=== PATIENT | female | born 1930 | race Hispanic/Latino ===

== ENCOUNTER 2021-09-15 21:25 | Emergency (ER) | payer MEDICARE ==
[2021-09-15] MEDS ORDERED: FAMOTIDINE 20 MG/2 ML INJ IV ONE (22:18)
[2021-09-15] MEDS ORDERED: DICYCLOMINE 20 MG/2 ML INJ IM ONE (22:18)
[2021-09-15] MEDS ORDERED: ALUM-MAG HYDROXIDE-SIMETHICONE 200-200-20MG/5ML ORAL LIQD 30 ML PO ONE (22:18)
[2021-09-15 23:09] LABS: Basophils # (Auto) 0.1 K/mm3 (0.0-0.1); Basophils % (Auto) 0.7 % (0.0-1.8); Eosinophils # (Auto) 0.1 K/mm3 (0.0-0.4); Eosinophils % (Auto) 1.1 % (0.0-4.3); Hematocrit 38.7 % (30.3-42.9); Hemoglobin 12.3 gm/dl (10.1-14.3); Lymphocytes # (Auto) 1.8 K/mm3 (1.2-5.4); Lymphocytes % (Auto) 19.4 % (13.4-35.0); Mean Corpuscular HGB Conc 32 % (30-34); Mean Corpuscular Volume 90 fl (79-97); Monocytes # (Auto) 0.8 K/mm3 (0.0-0.8); Monocytes % (Auto) 8.6 % (0.0-7.3); Platelet Count 208 K/mm3 (140-440); Red Blood Count 4.31 M/mm3 (3.65-5.03)
--- NOTE | 2021-09-15 23:29 | XRay Report ---
ABDOMEN 2 VIEW WITH PA CHEST INDICATION / CLINICAL INFORMATION: Epigastric pain. COMPARISON: Prior chest radiograph, 09/26/2010 FINDINGS: Supine and erect views of the abdomen demonstrate mild to moderate amount retained stool within the c olon. No visible fecal impaction. The remainder of the bowel gas pattern is unremarkable. No free air . There is severe degenerative change within the right hip. Left hip arthroplasty is present. PA view of the chest demonstrates mild stable cardiomegaly. There is mild chronic interstitial lung d isease. The lungs are otherwise grossly clear. IMPRESSION: 1. Mild to moderate amount retained stool throughout the colon without visible fecal impaction. 2. No other significant finding within the abdomen. 3. Mild cardiomegaly with mild chronic interstitial lung disease. The appearance of the chest radiogr aph is unchanged from 2011 exam. Signer Name: Mignon Goyal MD Signed: 09/15/2021 11:25 PM Workstation Name: [id number]
[2021-09-15 23:30] LABS: Alanine Aminotransferase 23 units/L (7-56); Albumin 3.8 g/dL (3.9-5); BUN/Creatinine Ratio 22; Blood Urea Nitrogen 22 mg/dL (7-17); Calcium 9.6 mg/dL (8.4-10.2); Hemolysis Index 7
--- NOTE | 2021-09-15 23:57 | Emergency Department Report ---
ED Abdominal Pain HPI - General Chief Complaint: Chest Pain Stated Complaint: CHEST PAIN Time Seen by Provider: 09/15/21 22:17 Source: EMS Mode of arrival: Stretcher Limitations: No Limitations - History of Present Illness Initial Comments: Patient is a 89-year-old female with a past medical history of atrial fibrillation and cholecystectomy 50 years ago who is presenting with some epigastric discomfort. Patient states at approximately 4 PM patient ate some meat loaf and mashed potatoes with a salad. Several hours later she started feeling some epigastric discomfort and fullness. Occasionally with radiating to the chest. States she felt like this was worsening indigestion so she came to the hospital. Patient states she belched several times and now feels complete relief. Currently she is not endorsing any complaints of pain. Associated Symptoms: other (Cough cold or congestion). denies: nausea, vomit ing, chills, constipation, dysuria, hematemesis, melena, hematuria, anorexia, syncope - Related Data Previous Rx's Medication Instructions Recorded Last Taken Type Docusate Sodium [Colace] 100 mg PO BID #30 capsule 09/15/21 Unknown Rx Allergies Allergy/AdvReac Type Severity Reaction Status Date / Time No Known Allergies Allergy Unverified 09/15/21 23:16 ED Review of Systems ROS: Stated complaint: CHEST PAIN Other details as noted in HPI Comment: All other systems reviewed and negative ED Past Medical Hx - Medications Home Medications: Home Medications Medication Instructions Recorded Confirmed Last Taken Type Docusate Sodium [Colace] 100 mg PO BID #30 capsule 09/15/21 Unknown Rx ED Physical Exam - General Limitations: No Limitations General appearance: alert, in no apparent distress - Head Head exam: Present: atraumatic, normocephalic - Eye Eye exam: Present: normal appearance, PERRL, EOMI - ENT ENT exam: Present: mucous membranes moist - Neck Neck exam: Present: normal inspection - Respiratory Respiratory exam: Present: normal lung sounds bilaterally. Absent: respiratory distress, wheezes, rales, rhonchi - Cardiovascular Cardiovascular Exam: Present: regular rate, normal rhythm. Absent: systolic murmur, diastolic murmur, rubs, gallop - GI/Abdominal GI/Abdominal exam: Present: soft, normal bowel sounds. Absent: distended, tenderness, guarding, rebound - Extremities Exam Extremities exam: Present: normal inspection - Back Exam Back exam: Present: normal inspection - Neurological Exam Neurological exam: Present: alert, oriented X3 - Psychiatric Psychiatric exam: Present: normal affect, normal mood - Skin Skin exam: Present: warm, dry, intact, normal color. Absent: rash ED Course Vital Signs 09/15/21 09/15/21 09/15/21 21:56 22:00 22:16 Pulse Rate 89 Respiratory 14 Rate Blood Pressure 134/64 130/59 107/45 O2 Sat by Pulse 97 97 Oximetry 09/15/21 09/15/21 09/15/21 22:30 22:46 23:00 Pulse Rate 80 85 91 H Respiratory 16 16 18 Rate Blood Pressure 92/50 92/50 126/48 O2 Sat by Pulse 94 96 95 Oximetry ED Medical Decision Making - Lab Data Result diagrams: 09/15/21 22:53 09/15/21 22:53 Lab Results 09/15/21 09/15/21 Range/Units 22:53 22:53 WBC 9.4 (4.5-11.0) K/mm3 RBC 4.31 (3.65-5.03) M/mm3 Hgb 12.3 (10.1-14.3) gm/dl Hct 38.7 (30.3-42.9) % MCV 90 (79-97) fl MCH 29 (28-32) pg MCHC 32 (30-34) % RDW 15.0 (13.2-15.2) % Plt Count 208 (140-440) K/mm3 Lymph % (Auto) 19.4 (13.4-35.0) % [place] % (Auto) 8.6 H (0.0-7.3) % Eos % (Auto) 1.1 (0.0-4.3) % Baso % (Auto) 0.7 (0.0-1.8) % Lymph # (Auto) 1.8 (1.2-5.4) K/mm3 [place] # (Auto) 0.8 (0.0-0.8) K/mm3 Eos # (Auto) 0.1 (0.0-0.4) K/mm3 Baso # (Auto) 0.1 (0.0-0.1) K/mm3 Seg Neutrophils % 70.2 H (40.0-70.0) % Seg Neutrophils # 6.6 (1.8-7.7) K/mm3 Sodium 141 (137-145) mmol/L Potassium 4.0 (3.6-5.0) mmol/L Chloride 106.7 (98-107) mmol/L Carbon Dioxide 23 (22-30) mmol/L Anion Gap 15 mmol/L BUN 22 H (7-17) mg/dL Creatinine 1.0 (0.6-1.2) mg/dL Estimated GFR 52 ml/min BUN/Creatinine Ratio 22 % Glucose 129 H (65-100) mg/dL Calcium 9.6 (8.4-10.2) mg/dL Total Bilirubin 0.30 (0.1-1.2) mg/dL AST 43 H (5-40) units/L ALT 23 (7-56) units/L Alkaline Phosphatase 117 (35-129) units/L Troponin T < 0.010 (0.00-0.029) ng/mL Total Protein 6.0 L (6.3-8.2) g/dL Albumin 3.8 L (3.9-5) g/dL Albumin/Globulin Ratio 1.7 % - EKG Data -: EKG Interpreted by Ri - EKG Data 09/15/21 23:54 EKG shows irregular regular rhythm with a rate 86. [place] is normal intervals otherwise normal. No ST segment elevations or depressions. Time interpretation 2204 - Radiology Data ABDOMEN 2 VIEW WITH PA CHEST INDICATION / CLINICAL INFORMATION: Epigastric pain. COMPARISON: Prior chest radiograph, 09/26/2010 FINDINGS: Supine and erect views of the abdomen demonstrate mild to moderate amount retained stool within the colon. No visible fecal impaction. The remainder of the bowel gas pattern is unremarkable. No free air. There is severe degenerative change within the right hip. Left hip arthroplasty is present. PA view of the chest demonstrates mild stable cardiomegaly. There is mild chronic interstitial lung disease. The lungs are otherwise grossly clear. IMPRESSION: 1. Mild to moderate amount retained stool throughout the colon without visible fecal impaction. 2. No other significant finding within the abdomen. 3. Mild cardiomegaly with mild chronic interstitial lung disease. The appearance of the chest radiograph is unchanged from 2011 exam. Signer Name: Mignon Goyal MD Signed: 09/15/2021 11:25 PM Workstation Name: [id number] - Medical Decision Making Patient likely with some GERD gas pain. After belching several times the patient states the pain is relieved. Troponin and EKG are within normal limits. No evidence of bowel obstruction. Patient stable for discharge Critical care attestation.: If time is entered above; I have spent that time in minutes in the direct care of this critically ill patient, excluding procedure time. ED Disposition Clinical Impression: Gas pain, GERD (gastroesophageal reflux disease), Constipation Disposition: 01 HOME / SELF CARE / HOMELESS Is pt being admited?: No Does the pt Need Aspirin: No Condition: Stable Instructions: Chronic Constipation, Gastroesophageal Reflux Disease, Adult, [id number] Prescriptions: Docusate Sodium [Colace] 100 mg PO BID #30 capsule Referrals: PRIMARY CARE, [Primary Care Provider] - 3-5 Days Time of Disposition: 23:57
[2021-09-16 04:31] VITALS: BP 129/80
--- NOTE | 2021-09-16 14:42 | Electrocardiograph Report ---
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
== END 2021-09-16 03:50 | disposition home or self-care (01) ==
LOC: ED 21:25
DX: R14.1 Gas pain (principal); K21.9 Gastro-esophageal reflux disease without esophagitis; K59.00 Constipation, unspecified
CPT/HCPCS: 36415; 74022; 80053; 84484; 85025; 93005; 93010; 99284

== ENCOUNTER 2022-01-20 11:21 | Inpatient (IN) | payer MEDICARE ==
--- NOTE | 2022-01-20 14:51 | Emergency Department Report ---
ED General Adult HPI - General Chief complaint: Chest Pain Stated complaint: CHEST PRESSURE Time Seen by Provider: 01/20/22 14:32 Source: EMS Mode of arrival: Stretcher Limitations: No Limitations - History of Present Illness Initial comments: The patient presents to the emergency department the chief complaint of chest pain. Patient states this morning she woke up with chest tightness throughout her entire chest. The patient states she took 3 nitroglycerin tablets with significant improvement in her pain. Patient states that she still having a t ightness in her chest and rates the tightness as a 4 out of 10. Patient denies any shortness of breath, headache, abdominal pain. Patient does have a remote history of a myocardial infarction and stent placement. Patient cannot remember what year that was done. 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 -: Sudden Location: chest Radiation: non-radiation Severity scale (0 -10): 4 Quality: other (Tightness) Consistency: constant Improves with: none Worsens with: none Associated Symptoms: denies other symptoms Treatments Prior to Arrival: none - Related Data Previous Rx's Medication Instructions Recorded Last Taken Type Docusate Sodium [Colace] 100 mg PO BID #30 capsule 09/15/21 Unknown Rx Allergies Allergy/AdvReac Type Severity Reaction Status Date / Time No Known Allergies Allergy Unverified 01/20/22 11:55 ED Review of Systems ROS: Stated complaint: CHEST PRESSURE Other details as noted in HPI Comment: All other systems reviewed and negative Constitutional: denies: chills, fever Eyes: denies: eye pain, eye discharge, vision change ENT: denies: ear pain, throat pain Respiratory: denies: cough, shortness of breath, wheezing Cardiovascular: chest pain. denies: palpitations Endocrine: no symptoms reported Gastrointestinal: denies: abdominal pain, nausea, diarrhea Genitourinary: denies: urgency, dysuria, discharge Musculoskeletal: denies: back pain, joint swelling, arthralgia Skin: denies: rash, lesions Neurological: denies: headache, weakness, paresthesias Psychiatric: denies: anxiety, depression Hematological/Lymphatic: denies: easy bleeding, easy bruising ED Past Medical Hx - Medications Home Medications: Home Medications Medication Instructions Recorded Confirmed Last Taken Type Docusate Sodium [Colace] 100 mg PO BID #30 capsule 09/15/21 Unknown Rx ED Physical Exam - General Limitations: No Limitations General appearance: alert, in no apparent distress - Head Head exam: Present: atraumatic, normocephalic - Eye Eye exam: Present: normal appearance, PERRL, EOMI - ENT ENT exam: Present: mucous membranes moist - Neck Neck exam: Present: normal inspection - Respiratory Respiratory exam: Present: normal lung sounds bilaterally. Absent: respiratory distress - Cardiovascular Cardiovascular Exam: Present: regular rate, normal rhythm. Absent: systolic murmur, diastolic murmur, rubs, gallop - GI/Abdominal GI/Abdominal exam: Present: soft, normal bowel sounds. Absent: distended, tend erness - Extremities Exam Extremities exam: Present: normal inspection - Back Exam Back exam: Present: normal inspection - Neurological Exam Neurological exam: Present: alert, oriented X3, CN II-XII intact. Absent: motor sensory deficit - Psychiatric Psychiatric exam: Present: normal affect, normal mood - Skin Skin exam: Present: warm, dry, intact, normal color. Absent: rash ED Course Vital Signs 01/20/22 11:39 Temperature 98.3 F Pulse Rate 73 Respiratory 16 Rate Blood Pressure 155/80 [Left] O2 Sat by Pulse 97 Oximetry ED Medical Decision Making - Lab Data Result diagrams: 01/20/22 Unknown 01/20/22 Unknown Lab Results 01/20/22 01/20/22 01/20/22 Range/Units Unknown Unknown Unknown WBC 7.1 (4.5-11.0) K/mm3 RBC 4.68 (3.65-5.03) M/mm3 Hgb 13.8 (10.1-14.3) gm/dl Hct 41.8 (30.3-42.9) % MCV 89 (79-97) fl MCH 30 (28-32) pg MCHC 33 (30-34) % RDW 14.6 (13.2-15.2) % Plt Count 196 (140-440) K/mm3 Lymph % (Auto) 29.6 (13.4-35.0) % [place] % (Auto) 6.8 (0.0-7.3) % Eos % (Auto) 1.6 (0.0-4.3) % Baso % (Auto) 0.9 (0.0-1.8) % Lymph # (Auto) 2.1 (1.2-5.4) K/mm3 [place] # (Auto) 0.5 (0.0-0.8) K/mm3 Eos # (Auto) 0.1 (0.0-0.4) K/mm3 Baso # (Auto) 0.1 (0.0-0.1) K/mm3 Seg Neutrophils % 61.1 (40.0-70.0) % Seg Neutrophils # 4.4 (1.8-7.7) K/mm3 PT 33.8 H (12.2-14.9) Sec. INR 2.86 H (0.87-1.13) APTT 46.6 H (24.2-36.6) Sec. Sodium 141 (137-145) mmol/L Potassium 4.0 (3.6-5.0) mmol/L Chloride 107.2 H (98-107) mmol/L Carbon Dioxide 23 (22-30) mmol/L Anion Gap 15 mmol/L BUN 13 (7-17) mg/dL Creatinine 0.8 (0.6-1.2) mg/dL Estimated GFR > 60 ml/min BUN/Creatinine Ratio 16 % Glucose 94 (65-100) mg/dL Calcium 10.2 (8.4-10.2) mg/dL Total Bilirubin 0.60 (0.1-1.2) mg/dL AST 16 (5-40) units/L ALT 10 (7-56) units/L Alkaline Phosphatase 98 (35-129) units/L Troponin T < 0.010 (0.00-0.029) ng/mL Total Protein 7.3 (6.3-8.2) g/dL Albumin 4.1 (3.9-5) g/dL Albumin/Globulin Ratio 1.3 % Lipase 16 (13-60) units/L - EKG Data -: EKG Interpreted by Me - EKG Data 01/20/22 18:06 A. fib, no STEMI - Radiology Data Radiology results: report reviewed - Medical Decision Making Lab Results 01/20/22 01/20/22 01/20/22 Range/Units Unknown Unknown Unknown WBC 7.1 (4.5-11.0) K/mm3 RBC 4.68 (3.65-5.03) M/mm3 Hgb 13.8 (10.1-14.3) gm/dl Hct 41.8 (30.3-42.9) % MCV 89 (79-97) fl MCH 30 (28-32) pg MCHC 33 (30-34) % RDW 14.6 (13.2-15.2) % Plt Count 196 (140-440) K/mm3 Lymph % (Auto) 29.6 (13.4-35.0) % [place] % (Auto) 6.8 (0.0-7.3) % Eos % (Auto) 1.6 (0.0-4.3) % Baso % (Auto) 0.9 (0.0-1.8) % Lymph # (Auto) 2.1 (1.2-5.4) K/mm3 [place] # (Auto) 0.5 (0.0-0.8) K/mm3 Eos # (Auto) 0.1 (0.0-0.4) K/mm3 Baso # (Auto) 0.1 (0.0-0.1) K/mm3 Seg Neutrophils % 61.1 (40.0-70.0) % Seg Neutrophils # 4.4 (1.8-7.7) K/mm3 PT 33.8 H (12.2-14.9) Sec. INR 2.86 H (0.87-1.13) APTT 46.6 H (24.2-36.6) Sec. Sodium 141 (137-145) mmol/L Potassium 4.0 (3.6-5.0) mmol/L Chloride 107.2 H (98-107) mmol/L Carbon Dioxide 23 (22-30) mmol/L Anion Gap 15 mmol/L BUN 13 (7-17) mg/dL Creatinine 0.8 (0.6-1.2) mg/dL Estimated GFR > 60 ml/min BUN/Creatinine Ratio 16 % Glucose 94 (65-100) mg/dL Calcium 10.2 (8.4-10.2) mg/dL Total Bilirubin 0.60 (0.1-1.2) mg/dL AST 16 (5-40) units/L ALT 10 (7-56) units/L Alkaline Phosphatase 98 (35-129) units/L Troponin T < 0.010 (0.00-0.029) ng/mL Total Protein 7.3 (6.3-8.2) g/dL Albumin 4.1 (3.9-5) g/dL Albumin/Globulin Ratio 1.3 % Lipase 16 (13-60) units/L Results discussed with patient Critical care attestation.: If time is entered above; I have spent that time in minutes in the direct care of this critically ill patient, excluding procedure time. ED Disposition Clinical Impression: Chest pain Disposition: ADMITTED INPATIENT Is pt being admited?: Yes Does the pt Need Aspirin: No Condition: Fair Heart Score - HEART Score History: Moderately suspicious EKG: Non-specific Age: > 65 Risk factors: 1-2 risk factors Troponin: 1-3x normal limit HEART Score: 6 - EKG Read Time Time EKG Completed: 00:00 EKG Read Time: 00:00
--- NOTE | 2022-01-20 15:21 | XRay Report ---
CHEST 1 VIEW 01/20/2022 2:06 PM INDICATION / CLINICAL INFORMATION: Chest Pain. COMPARISON: 09/26/2010 FINDINGS: SUPPORT DEVICES: None. HEART / MEDIASTINUM: Heart size appears borderline LUNGS / PLEURA: No significant pulmonary or pleural abnormality. No pneumothorax. ADDITIONAL FINDINGS: No significant additional findings. IMPRESSION: 1. Borderline heart size. Lungs clear. No significant change since 2010. Signer Name: Rohit Delatorre Jr, MD Signed: 01/20/2022 3:17 PM Workstation Name: [id number]
[2022-01-20 15:46] LABS: Basophils # (Auto) 0.1 K/mm3 (0.0-0.1); Basophils % (Auto) 0.9 % (0.0-1.8); Eosinophils # (Auto) 0.1 K/mm3 (0.0-0.4); Eosinophils % (Auto) 1.6 % (0.0-4.3); Hematocrit 41.8 % (30.3-42.9); Hemoglobin 13.8 gm/dl (10.1-14.3); Lymphocytes # (Auto) 2.1 K/mm3 (1.2-5.4); Lymphocytes % (Auto) 29.6 % (13.4-35.0); Mean Corpuscular HGB Conc 33 % (30-34); Mean Corpuscular Volume 89 fl (79-97); Monocytes # (Auto) 0.5 K/mm3 (0.0-0.8); Monocytes % (Auto) 6.8 % (0.0-7.3); Platelet Count 196 K/mm3 (140-440); Red Blood Count 4.68 M/mm3 (3.65-5.03); Red Cell Distribution Width 14.6 % (13.2-15.2)
[2022-01-20 15:56] LABS: INR 2.86 (0.87-1.13)
[2022-01-20 15:57] LABS: Partial Thromboplastin Time 46.6 Sec. (24.2-36.6)
[2022-01-20 16:07] LABS: Alanine Aminotransferase 10 units/L (7-56); Albumin 4.1 g/dL (3.9-5); BUN/Creatinine Ratio 16; Blood Urea Nitrogen 13 mg/dL (7-17); Calcium 10.2 mg/dL (8.4-10.2); Hemolysis Index 5
--- NOTE | 2022-01-20 18:07 | History and Physical Report ---
History of Present Illness Chief complaint: My chest hurts History of present illness: 89 YO Female with Vascular Dementia, Cerebral Atherosclerosis, [place], CAD S/P Stent Placement presents ED for evaluation. Patient reports my chest hurts. Patient states that she awakened from sleep this morning and was found to have pain in her chest. Patient states the pain is 4 out of 10, constant, worsened with exertion, relieved with rest, relieved with nitro, nonradiating. Patient knowledges decreased exercise tolerance, dyspnea on exertion as well as dyspnea at rest. EMS was notified and upon arrival the patient was found to be in distress and subsequent transported to [facility] for further care and evaluation of the aforementioned symptoms. The patient was seen and evaluated in the emergency department. All lab and imaging studies reviewed. Patient found to have angina at rest as well as clinical symptoms consistent with diastolic congestive heart failure. Patient admitted to telemetry and initiated on ACS protocol as well as CHF protocol. Cardiology team consulted in ED. Patient denies fever, chills, productive cough, skin rash, recent contact, known exposure to COVID-19. No prior admission for review. No medication listed at time of admission for reconciliation. Advanced care planning conducted in ED. Past History Past Medical History: acute [place], CAD Past Surgical History: Other (Cardiac stent placement) Social history: . denies: smoking, alcohol abuse, prescription drug abuse Family history: CAD, hypertension Medications and Allergies Allergies Allergy/AdvReac Type Severity Reaction Status Date / Time No Known Allergies Allergy Unverified 01/20/22 11:55 Home Medications Medication Instructions Recorded Confirmed Last Taken Type Docusate Sodium [Colace] 100 mg PO BID #30 capsule 09/15/21 Unknown Rx Review of Systems Constitutional: no weight loss, no fever Ears, nose, mouth and throat: no ear pain, no tinnitis, no nose pain, no nasal congestion Breasts: no change in shape, no swelling Cardiovascular: chest pain, decreased exercise tolerance Respiratory: no cough, no cough with sputum, no hemoptysis, no shortness of breath Gastrointestinal: no abdominal pain, no nausea, no diarrhea, no constipation Genitourinary Female: no pelvic pain, no flank pain, no dysuria, no urinary fr equency Rectal: no pain, no incontinence, no bleeding Musculoskeletal: no neck pain, no arm numbness/tingling, no low back pain, no shooting leg pain Integumentary: no rash, no pruritis, no wounds Neurological: no head injury, no paralysis, no parathesias, no tingling, no tremors Psychiatric: no anxiety, no change in sleep habits, no insomnia, no change in appetite, no suicidal ideation Endocrine: no cold intolerance, no polyphagia, no polydipsia, no nocturia, no excessive sweating Hematologic/Lymphatic: no easy bruising Allergic/Immunologic: no urticaria Exam - Constitutional Vitals: Temp Pulse Resp BP Pulse Ox 98.3 F 73 16 155/80 97 01/20/22 11:39 01/20/22 11:39 01/20/22 11:39 01/20/22 11:39 01/20/22 11:39 General appearance: Present: mild distress - EENT Eyes: Present: PERRL ENT: hearing intact, clear oral mucosa - Neck Neck: Present: supple, normal ROM - Respiratory Respiratory effort: normal Respiratory: bilateral: CTA - Cardiovascular Heart Sounds: Present: S1 & S2. Absent: rub, click - Extremities Extremities: pulses symmetrical, No edema Peripheral Pulses: within normal limits - Abdominal General gastrointestinal: Present: soft, non-tender, non-distended, normal bowel sounds Female genitourinary: Present: normal - Integumentary Integumentary: Present: clear, warm, dry - Musculoskeletal Musculoskeletal: gait normal, strength equal bilaterally - Psychiatric Psychiatric: appropriate mood/affect, intact judgment & insight - Neurologic Neurologic: CNII-XII intact, moves all extremities HEART Score - HEART Score EKG: Non-specific Age: > 65 Risk factors: 1-2 risk factors Troponin: Troponin T < 0.010 ng/mL (0.00-0.029) 01/20/22 Unknown Results - Labs CBC & Chem 7: 01/20/22 Unknown 01/20/22 Unknown Labs: Abnormal lab results 01/20/22 01/20/22 Range/Units Unknown Unknown PT 33.8 H (12.2-14.9) Sec. INR 2.86 H (0.87-1.13) APTT 46.6 H (24.2-36.6) Sec. Chloride 107.2 H (98-107) mmol/L Assessment and Plan - Patient Problems (1) Angina at rest Current Visit: Yes Status: Acute Plan to address problem: ACS protocol: Serial cardiac enzymes, EKG, telemetry monitoring, cardiology team consulted in ED, further care and evaluation as per cardiology team. (2) Diastolic CHF Current Visit: Yes Status: Acute Qualifiers: Heart failure chronicity: acute Qualified Code(s): I50.31 - Acute diastolic (congestive) heart failure Plan to address problem: Strict I's/O, monitor urine output every shift, daily weight, afterload reduction, blood pressure control, cardiology team consulted, echocardiogram ordered and pending at time of admission. (3) Vascular dementia Current Visit: Yes Status: Acute Qualifiers: Dementia behavioral disturbance: without behavioral disturbance Qualified Code(s): F01.50 - Vascular dementia without behavioral disturbance Plan to address problem: Verbal prompting, verbal redirection, benzodiazepine therapy as clinically indicated. (4) Cerebral atherosclerosis Current Visit: Yes Status: Acute Plan to address problem: Risk factor reduction, antiplatelet therapy as clinically indicated, supportive care. (5) DVT prophylaxis Current Visit: Yes Status: Acute Plan to address problem: SCD to bilateral lower extremities while in bed (6) Advance care planning Current Visit: Yes Status: Acute Plan to address problem: Disease education done, care plan discussed, diagnoses discussed, prognosis discussed, patient is full code. Patient acknowledges understanding agreement with care plan, +30 minutes. (7) Preventative health care Current Visit: Yes Status: Acute Plan to address problem: Patient counseled with regarding risk factor reduction, low-cholesterol diet, outpatient follow-up with primary care physician for all age and risk factor appropriate screening test.
[2022-01-20 18:09] LABS: Bilirubin,Urine NEG (Negative); Blood,Urine MOD (Negative); Color,Urine Straw (Yellow); Protein,Urine <15 mg/dL mg/dL (Negative); Urobilinogen,Urine < 2.0 mg/dL (<2.0)
[2022-01-20] MEDS ORDERED: NITROGLYCERIN 0.4 MG TAB SUBL SL PRN (18:09)
[2022-01-20] MEDS ORDERED: traMADol 50 MG TAB PO PRN (18:09)
[2022-01-20] MEDS ORDERED: ASPIRIN 81 MG TAB CHEW PO STA (18:09)
[2022-01-20] MEDS ORDERED: ALBUTEROL 2.5 MG/3 ML NEBU IH PRN (18:09)
[2022-01-20] MEDS ORDERED: ACETAMINOPHEN 325 MG TAB PO PRN ×2 (18:09)
[2022-01-20] MEDS ORDERED: oxyCODONE /ACETAMINOPHEN 5-325MG TAB PO PRN (18:09)
[2022-01-20] MEDS ORDERED: MORPHINE 4 MG/1 ML INJ IV PRN (18:09)
[2022-01-20] MEDS ORDERED: ONDANSETRON 4 MG/2 ML INJ IV PRN (18:09)
[2022-01-20] MEDS: FAMOTIDINE 10 MG TAB PO SCH (22:00)
[2022-01-20] MEDS: DOCUSATE SODIUM 100 MG CAP PO SCH (22:00)
[2022-01-21 03:35] LABS: Blood Urea Nitrogen 12 mg/dL (7-17); Calcium 10.5 mg/dL (8.4-10.2); Hemolysis Index 5
[2022-01-21 03:40] LABS: BUN/Creatinine Ratio 17
[2022-01-21] MEDS ORDERED: ASPIRIN 81 MG TAB CHEW ONE (06:48)
[2022-01-21] MEDS ORDERED: FAMOTIDINE 20 MG/2 ML INJ IV ONE (06:49)
--- NOTE | 2022-01-21 10:36 | Consultation ---
History of Present Illness Consult date: 01/21/22 Consult reason: chest pain History of present illness: 89-year-old female with past medical history of CAD status post prior stents, persistent atrial fibrillation on warfarin, and hypertension is admitted with chest discomfort. Patient reports recent onset of chest tightness located in the right chest. Symptoms are notable upon waking up but no recurrence during the day or with activity. No relationship with food. She denies any shortness of breath, leg swelling, or activity intolerance. She is followed by Dr. Kwame Washington at [facility]. Work-up notable for EKG w/o ischemic changes and troponin x3 negative. Past History Past Medical History: acute ME, CAD Past Surgical History: Other (Cardiac stent placement) Social history: . denies: smoking, alcohol abuse, prescription drug abuse Family history: CAD, hypertension Medications and Allergies Allergies Allergy/AdvReac Type Severity Reaction Status Date / Time No Known Allergies Allergy Unverified 01/20/22 11:55 Home Medications Medication Instructions Recorded Confirmed Last Taken Type Docusate Sodium [Colace CAP] 100 mg PO BID #30 capsule 09/15/21 01/20/22 Unknown Rx Losartan 50 mg PO HS 01/20/22 01/20/22 Unknown History Warfarin 4 mg PO HS 01/20/22 01/20/22 Unknown History Amlodipine Besylate [Norvasc] 5 mg PO DAILY 01/21/22 01/21/22 Unknown History Aspirin [Aspirin BABY CHEW TAB] 81 mg PO DAILY 01/21/22 01/21/22 Unknown History Levothyroxine Sodium 88 mcg PO DAILY 01/21/22 01/21/22 Unknown History [Levothyroxine] Metoprolol [Lopressor TAB] 25 mg PO BID #60 tablet 01/21/22 Unknown Rx Oxybutynin Chloride [Ditropan Xl] 10 mg PO QDAY 01/21/22 01/21/22 Unknown History Active Meds: Active Medications Acetaminophen (Acetaminophen 325 Mg Tab) 650 mg PO Q4H PRN PRN Reason: Pain MILD(1-3)/Fever >100.5/MADRID Acetaminophen (Acetaminophen 325 Mg Tab) 650 mg PO Q6H PRN PRN Reason: Pain, Mild (1-3) Albuterol (Albuterol 2.5 Mg/3 Ml Nebu) 2.5 mg IH Q4HRT PRN PRN Reason: Shortness Of Breath Amlodipine Besylate (Amlodipine 5 Mg Tab) 5 mg PO QDAY [facility] Aspirin (Aspirin 81 Mg Tab Chew) 81 mg PO QDAY [facility] Docusate Sodium (Docusate Sodium 100 Mg Cap) 100 mg PO BID [facility] Last Admin: 01/20/22 22:00 Dose: 100 mg Famotidine (Famotidine 10 Mg Tab) 10 mg PO BID [facility] Last Admin: 01/20/22 22:00 Dose: 10 mg Losartan Potassium (Losartan 50 Mg Tab) 50 mg PO QDAY [facility] Morphine Sulfate (Morphine 4 Mg/1 Ml Inj) 2 mg IV Q8H PRN PRN Reason: Pain , Severe (7-10) Nitroglycerin (Nitroglycerin 0.4 Mg Tab Subl) 0.4 mg SL Q5M PRN PRN Reason: Chest Pain Ondansetron HCl (Ondansetron 4 Mg/2 Ml Inj) 4 mg IV Q8H PRN PRN Reason: Nausea And Vomiting Oxycodone/Acetaminophen (Oxycodone /Acetaminophen 5-325mg Tab) 1 tab PO Q6H PRN PRN Reason: Pain, Moderate (4-6) Sodium Chloride (Sodium Chloride 0.9% 10 Ml Flush Syringe) 10 ml IV BID [facility] Last Admin: 01/20/22 22:00 Dose: 10 ml Sodium Chloride (Sodium Chloride 0.9% 10 Ml Flush Syringe) 10 ml IV PRN PRN PRN Reason: LINE FLUSH Sodium Chloride (Sodium Chloride 0.9% 10 Ml Flush Syringe) 10 ml IV PRN PRN PRN Reason: LINE FLUSH Tramadol HCl (Tramadol 50 Mg Tab) 50 mg PO Q6H PRN PRN Reason: Pain, Moderate (4-6) Physical Examination Vital Signs Temp Pulse Resp BP Pulse Ox 98.3 F 73 16 155/80 97 01/20/22 11:39 01/20/22 11:39 01/20/22 11:39 01/20/22 11:39 01/20/22 11:39 Narrative exam: Gen-NAD, comfortable HEENT-normocephalic, atraumatic CV-irregularly irregular rhythm, controlled rate, no murmurs Lungs-CTAB, no increased WOB Abd-soft, nt,nd Ext-no edema, warm to touch Neuro-no focal deficits, alert and oriented Psych-normal affect, no agitation Results 01/20/22 Unknown 01/21/22 02:52 Cardiac Enzymes 01/20/22 Range/Units Unknown AST 16 (5-40) units/L Coagulation 01/20/22 Range/Units Unknown PT 33.8 H (12.2-14.9) Sec. INR 2.86 H (0.87-1.13) APTT 46.6 H (24.2-36.6) Sec. CBC 01/20/22 Range/Units Unknown WBC 7.1 (4.5-11.0) K/mm3 RBC 4.68 (3.65-5.03) M/mm3 Hgb 13.8 (10.1-14.3) gm/dl Hct 41.8 (30.3-42.9) % Plt Count 196 (140-440) K/mm3 Lymph # (Auto) 2.1 (1.2-5.4) K/mm3 Avery # (Auto) 0.5 (0.0-0.8) K/mm3 Eos # (Auto) 0.1 (0.0-0.4) K/mm3 Baso # (Auto) 0.1 (0.0-0.1) K/mm3 Comprehensive Metabolic Panel 01/20/22 01/21/22 Range/Units Unknown 02:52 Sodium 141 143 (137-145) mmol/L Potassium 4.0 4.0 (3.6-5.0) mmol/L Chloride 107.2 H 105.7 (98-107) mmol/L Carbon Dioxide 23 24 (22-30) mmol/L BUN 13 12 (7-17) mg/dL Creatinine 0.8 0.7 (0.6-1.2) mg/dL Glucose 94 96 (65-100) mg/dL Calcium 10.2 10.5 H (8.4-10.2) mg/dL AST 16 (5-40) units/L ALT 10 (7-56) units/L Alkaline Phosphatase 98 (35-129) units/L Total Protein 7.3 (6.3-8.2) g/dL Albumin 4.1 (3.9-5) g/dL Telemetryrate controlled AF 01/20/22 EKG - AF 84, LVH, nonspecific ST changes Assessment and Plan #Atypical chest discomfort #CAD status post prior stents #Persistent atrial fibrillation on warfarin - rate controlled #Hypertension ACS has been ruled out. Will check echo. We will determine whether further ischemic work-up is necessary pending findings. Continue warfarin for INR goal 2-3. Start aspirin. Continue home amlodipine and losartan.
[2022-01-21] MEDS ORDERED: LEVOTHYROXINE SODIUM 88 MCG PO SCH (11:00)
[2022-01-21] MEDS ORDERED: NON-FORMULARY EACH (Oxybutynin Chloride [Ditropan Xl] 10 MG Tab.Er.24) PO SCH (11:00)
--- NOTE | 2022-01-21 11:01 | Progress Note ---
Assessment and Plan (1) Angina at rest Current Visit: Yes Status: Acute Plan to address problem: ACS protocol: Serial cardiac enzymes, EKG, telemetry monitoring, cardiology team consulted in ED, further care and evaluation as per cardiology team. (2) Diastolic CHF Current Visit: Yes Status: Acute Qualifiers: Heart failure chronicity: acute Qualified Code(s): I50.31 - Acute diastolic (congestive) heart failure Plan to address problem: Strict I's/O, monitor urine output every shift, daily weight, afterload reduction, blood pressure control, cardiology team consulted, echocardiogram ordered and pending at time of admission. (3) Vascular dementia Current Visit: Yes Status: Acute Qualifiers: Dementia behavioral disturbance: without behavioral disturbance Qualified Code(s): F01.50 - Vascular dementia without behavioral disturbance Plan to address problem: Verbal prompting, verbal redirection, benzodiazepine therapy as clinically indicated. (4) Cerebral atherosclerosis Current Visit: Yes Status: Acute Plan to address problem: Risk factor reduction, antiplatelet therapy as clinically indicated, supportive care. (5) DVT prophylaxis Current Visit: Yes Status: Acute Plan to address problem: SCD to bilateral lower extremities while in bed (6) Advance care planning Current Visit: Yes Status: Acute Plan to address problem: Disease education done, care plan discussed, diagnoses discussed, prognosis discussed, patient is full code. Patient acknowledges understanding agreement with care plan, +30 minutes. (7) Preventative health care Current Visit: Yes Status: Acute Plan to address problem: Patient counseled with regarding risk factor reduction, low-cholesterol diet, outpatient follow-up with primary care physician for all age and risk factor appropriate screening test. Subjective Date of service: 01/21/22 Objective - Constitutional Vitals: Vital Signs - 12hr 01/21/22 01/21/22 01/21/22 02:00 06:10 06:38 Temperature 98 F 98.4 F Pulse Rate 82 84 Respiratory 18 18 Rate Blood Pressure 158/76 164/95 [Left] O2 Sat by Pulse 99 100 99 Oximetry 01/21/22 01/21/22 08:40 09:12 Temperature 98.4 F Pulse Rate 84 Respiratory 16 Rate Blood Pressure [Left] O2 Sat by Pulse 98 97 Oximetry - Labs CBC & Chem 7: 01/20/22 Unknown 01/21/22 02:52 Labs: Abnormal lab results 01/20/22 01/20/22 01/21/22 Range/Units Unknown Unknown 02:52 PT 33.8 H (12.2-14.9) Sec. INR 2.86 H (0.87-1.13) APTT 46.6 H (24.2-36.6) Sec. Chloride 107.2 H (98-107) mmol/L Calcium 10.5 H (8.4-10.2) mg/dL HEART Score - HEART Score EKG: Non-specific Age: > 65 Risk factors: 1-2 risk factors Troponin: Troponin T < 0.010 ng/mL (0.00-0.029) 01/21/22 01:35 Troponin: 1-3x normal limit
--- NOTE | 2022-01-21 12:22 | Discharge Summary ---
Providers - Providers Date of Admission: 01/20/22 18:09 Date of discharge: 01/21/22 Attending physician: ILDEFONSO VEGA 01/20/22 Consult to Cardiac Rehabilitation [CONS] Routine Reason For Exam: Phase I 01/20/22 18:09 Consult to Cardiology [CONS] Routine Consulting Provider: SHANNAN GONCALVES Reason For Exam: angina Primary care physician: LOSS PREVENTION AUDITOR Hospitalization Condition: Fair Final Discharge Diagnosis (Prints w/discharge instructions): -- Atypical chest pain. -- Chronic atrial fibrillation. -- Hypertension Time spent for discharge: 34 minutes Core Measure Documentation - Palliative Care Palliative Care/ Comfort Measures: Not Applicable - Core Measures Any of the following diagnoses?: none Exam - Constitutional Vitals: Temp Pulse Resp BP Pulse Ox 98.4 F 84 16 164/95 97 01/21/22 09:12 01/21/22 09:12 01/21/22 09:12 01/21/22 06:38 01/21/22 09:12 Plan Activity: advance as tolerated Weight Bearing Status: Weight Bear as Tolerated Diet: low fat, low salt Additional Instructions: Follow-up with your chief operator hydroformer in 1 week for possible outpatient stress test Follow up with: PRIMARY CAREMD [Primary Care Provider] - 7 Days Prescriptions: Metoprolol [Lopressor TAB] 25 mg PO BID #60 tablet
[2022-01-21] MEDS: DOCUSATE SODIUM 100 MG CAP PO SCH ×3 (12:53→21:58)
[2022-01-21] MEDS: amLODIPine 5 MG TAB PO SCH (12:54)
[2022-01-21] MEDS: ASPIRIN 81 MG TAB CHEW PO SCH (12:54)
[2022-01-21] MEDS: LEVOTHYROXINE 88 MCG TAB PO SCH (12:54)
[2022-01-21] MEDS: FAMOTIDINE 10 MG TAB PO SCH ×2 (12:54→21:42)
[2022-01-21] MEDS: OXYBUTYNIN 5 MG TAB PO SCH ×2 (16:13→21:42)
[2022-01-21] MEDS: METOPROLOL TARTRATE 25 MG TAB PO SCH ×3 (16:13→21:42)
[2022-01-21] MEDS ORDERED: WARFARIN 2 MG TAB PO NR (17:00)
[2022-01-21] MEDS ORDERED: LOSARTAN 50 MG TAB PO SCH ×2 (22:00)
[2022-01-21] MEDS ORDERED: WARFARIN 4 MG PO SCH (22:00)
[2022-01-21] MEDS ORDERED: NON-FORMULARY EACH (Losartan 50 MG) PO SCH (22:00)
[2022-01-22] MEDS: LEVOTHYROXINE 88 MCG TAB PO SCH (06:35)
[2022-01-22 06:47] LABS: INR 2.42 (0.87-1.13)
[2022-01-22] MEDS: METOPROLOL TARTRATE 25 MG TAB PO SCH (09:30)
[2022-01-22] MEDS: FAMOTIDINE 10 MG TAB PO SCH (09:30)
[2022-01-22] MEDS: DOCUSATE SODIUM 100 MG CAP PO SCH (09:30)
[2022-01-22] MEDS: ASPIRIN 81 MG TAB CHEW PO SCH (09:30)
[2022-01-22] MEDS: amLODIPine 5 MG TAB PO SCH (09:30)
[2022-01-22] MEDS: OXYBUTYNIN 5 MG TAB PO SCH (09:30)
--- NOTE | 2022-01-22 09:57 | Progress Note ---
Assessment and Plan #Atypical chest discomfort #CAD status post prior stents #Persistent atrial fibrillation on warfarin - rate controlled #Hypertensioncontrolled ACS has been ruled out, currently chest pain-free. Echo pending. We will determine whether further ischemic work-up is necessary pending findings. Continue warfarin for INR goal 2-3. Start aspirin. Continue aspirin, metoprolol, amlodipine, and losartan. Subjective Date of service: 01/22/22 Interval history: No events. No chest pain or shortness of breath. Patient has not been wearing telemetry. Objective Vital Signs Temp Pulse Pulse Resp BP BP Pulse Ox 01/22/22 08:39 97.8 F 83 18 139/73 98 01/22/22 08:35 100 01/22/22 03:35 97.9 F 78 14 125/54 98 01/21/22 21:42 75 121/66 01/21/22 20:00 75 16 96 01/21/22 16:03 97 H 16 190/94 98 01/21/22 15:42 100 01/21/22 12:45 89 16 148/72 97 - Physical Examination Narrative exam: Gen-NAD, comfortable HEENT-normocephalic, atraumatic CV-irregularly irregular rhythm, controlled rate, no murmurs Lungs-CTAB, no increased WOB Abd-soft, nt,nd Ext-no edema, warm to touch Neuro-no focal deficits, alert and oriented Psych-normal affect, no agitation - Labs and Meds Coagulation 01/22/22 Range/Units 05:42 PT 29.5 H (12.2-14.9) Sec. INR 2.42 H (0.87-1.13)
[2022-01-22 10:57] VITALS: BP 125/54
[2022-01-22] MEDS ORDERED: ASPIRIN EC 81 MG TAB PO SCH (14:00)
[2022-01-22] MEDS ORDERED: WARFARIN 2 MG TAB PO SCH (17:00)
--- NOTE | 2022-01-22 21:26 | Electrocardiograph Report ---
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
--- NOTE | 2022-01-22 21:30 | Electrocardiograph Report ---
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
--- NOTE | 2022-01-22 21:32 | Electrocardiograph Report ---
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
== END 2022-01-22 16:15 | disposition home or self-care (01) | DRG 291 ==
LOC: ED 11:21 → 4A 18:09
PROVIDERS: ADMIT Internal Medicine; ATTEND Internal Medicine
DX: I11.0 Hypertensive heart disease with heart failure (principal); I50.31 Acute diastolic (congestive) heart failure; I48.19 Other persistent atrial fibrillation; R07.89 Other chest pain; I25.10 Atherosclerotic heart disease of native coronary artery without angina pectoris; F01.50 Vascular dementia, unspecified severity, without behavioral disturbance, psychotic disturbance, mood disturbance, and anxiety; Z95.5 Presence of coronary angioplasty implant and graft; I25.2 Old myocardial infarction; Z82.49 Family history of ischemic heart disease and other diseases of the circulatory system; Z79.899 Other long term (current) drug therapy; Z79.01 Long term (current) use of anticoagulants
CPT/HCPCS: 36415; 71045; 80048; 80053; 81001; 83690; 84484; 85025; 85610; 85730; 93005; 93306; G0378; J3490; C8929